=== PATIENT | female | born 1970 | race Caucasian/White ===

== ENCOUNTER → 2016-12-16 | Outpatient (CLI) | payer OTHER | LOC: FIMAGING 13:26 | PROVIDERS: ATTEND Family Medicine | DX: Z12.31 Encounter for screening mammogram for malignant neoplasm of breast (principal) | CPT/HCPCS: G0202 ==

== ENCOUNTER → 2017-12-22 | Outpatient (CLI) | payer OTHER | LOC: FIMAGING 07:42 | PROVIDERS: ATTEND Family Medicine | DX: N93.9 Abnormal uterine and vaginal bleeding, unspecified (principal); R93.8 Abnormal findings on diagnostic imaging of other specified body structures ==

== ENCOUNTER 2018-05-01 15:55 | Emergency (ER) | payer OTHER ==
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
[2018-05-01] MEDS ORDERED: IOPAMIDOL (ISOVUE 370) 100 ML BTL IV ONE (18:10)
[2018-05-01 20:05] VITALS: BP 126/65
== END 2018-05-01 20:05 | disposition home or self-care (01) ==
DX: S19.80XA Other specified injuries of unspecified part of neck, initial encounter (principal); E04.2 Nontoxic multinodular goiter; W22.8XXA Striking against or struck by other objects, initial encounter; Y92.34 Swimming pool (public) as the place of occurrence of the external cause; Y99.9 Unspecified external cause status; Y93.9 Activity, unspecified
CPT/HCPCS: 82435-PO; 82565-PO; 82947-PO; 84132-PO; 84295-PO; 84520-PO; 85014-ER; Q9967